=== PATIENT | female | born 1955 | race Caucasian/White ===

== ENCOUNTER 2019-01-26 14:51 | Emergency (ER) | payer OTHER ==
[~2019-01-26] VITALS: Ht 154.9 cm; Wt 77.1 kg
[2019-01-26] MEDS ORDERED: [UNRECOGNIZED DRUG - REMARK] (15:35)
[2019-01-26] MEDS ORDERED: VENTOLIN HFA18 GM (15:36)
== END 2019-01-26 21:56 | disposition home or self-care (01) ==
LOC: ER 14:51
DX: M79.605 Pain in left leg (principal); M79.604 Pain in right leg; R60.0 Localized edema; I10 Essential (primary) hypertension